=== PATIENT | female | born 1980 ===

== ENCOUNTER 2024-06-30 09:27 | Emergency (ER) | payer OTHER ==
[~2024-06-30] VITALS: Ht 154.9 cm; Wt 67.1 kg
== END 2024-06-30 11:11 | disposition home or self-care (01) ==
LOC: ER 09:27
DX: S63.502A Unspecified sprain of left wrist, initial encounter (principal); V69.88XA Occupant (driver) (passenger) of heavy transport vehicle injured in other specified transport accidents, initial encounter
CPT/HCPCS: 29125; 73110; 73130; 73140; 99283-25

== ENCOUNTER 2024-12-31 19:16 | Inpatient (IN) | payer OTHER | END 2025-01-03 13:30 | disposition home or self-care (01) | DRG 871 | LOC: ER 19:16 → ERHOLD 23:03 → PCU 01-01 00:30 | PROVIDERS: ADMIT Student in an Organized Health Care Education/Training Program | DX: A41.9 Sepsis, unspecified organism (principal); J18.9 Pneumonia, unspecified organism; E87.1 Hypo-osmolality and hyponatremia; G96.198 Other disorders of meninges, not elsewhere classified; K76.0 Fatty (change of) liver, not elsewhere classified; E87.6 Hypokalemia; R79.1 Abnormal coagulation profile; F17.210 Nicotine dependence, cigarettes, uncomplicated; E86.1 Hypovolemia ==

== ENCOUNTER 2025-01-22 17:27 | Inpatient (IN) | payer OTHER ==
[~2025-01-22] VITALS: Ht 152.4 cm; Wt 60.0 kg
[~2025-01-22 17:27] MED LIST: AMOCLA875 PO; Acetaminophen650 M1 PO; GUAI600T33 PO
[2025-01-22] MEDS ORDERED: Ketorolac Tromethamine 15mg Vial IV ONE (18:15)
[2025-01-22] MEDS ORDERED: Ondansetron HCl 2 MG / ML 2ML Vial IV ONE (18:15)
[2025-01-22 19:01] LABS: BASOPHILS ABSOLUTE AUTO 0.06 K/mm3 (0.00-0.23); BASOPHILS PERCENT AUTO 0 % (0-2); EOSINOPHILS ABSOLUTE AUTO 0.41 K/mm3 (0.00-0.68); EOSINOPHILS PERCENT AUTO 3 % (0-6); Hematocrit 42.3 % (33.0-51.0); Hemoglobin 13.8 g/dL (11.5-16.0); IMMATURE GRAN ABSOLUTE AUTO 0.04 K/mm3 (0.00-0.10); IMMATURE GRAN PERCENT AUTO 0 % (0-1); LYMPHOCYTES ABSOLUTE AUTO 1.37 K/mm3 (0.84-5.20); LYMPHOCYTES PERCENT AUTO 9 % (21-46); MONOCYTES ABSOLUTE AUTO 0.91 K/mm3 (0.16-1.47); MONOCYTES PERCENT AUTO 6 % (4-13); Mean Corpuscular HGB Conc 32.6 g/dL (31.5-36.5); Mean Corpuscular Volume 105 fL (80-100); NEUTROPHILS ABSOLUTE AUTO 11.72 K/mm3 (1.96-9.15); NEUTROPHILS PERCENT AUTO 81 % (41-73); NRBC ABSOLUTE 0.00 K/mm3 (0.00-0.02); NRBC Auto 0.0 /100 WBC (0.0-0.2); Platelet Count 305 K/mm3 (150-400); RDW Coefficient Variation 15.4 % (11.7-14.2); RDW Standard Deviation 59.6 fL (35.1-46.3)
[2025-01-22 19:26] LABS: Alanine Aminotransfer (ALT/SGP 104 U/L (12-78); Albumin, Blood 3.4 g/dL (3.4-5.0); Albumin/Globulin Ratio 0.7 (0.8-1.8); Anion Gap 8 mmol/L (3-11); Aspartate Aminotrans (AST/SGOT 195 U/L (12-37); Bilirubin, Total 0.6 mg/dL (0.1-1.0); Blood Urea Nitrogen 16 mg/dL (8-24); CO2, Blood 30 mmol/L (21-32); Calcium, Blood 9.3 mg/dL (8.5-10.1); Chloride, Blood 106 mmol/L (98-108); Creatinine, Blood 0.98 mg/dL (0.40-1.00); Globulin, Blood 4.9 g/dL (2.2-4.0); Glucose, Blood 122 mg/dL (70-99); Potassium, Blood 4.5 mmol/L (3.5-5.5); Sodium, Blood 139 mmol/L (136-145); Total Protein, Blood 8.3 g/dL (6.4-8.2)
[2025-01-22] MEDS ORDERED: Morphine Sulfate 4 MG/1 ML Injection IV ONE (20:20)
[2025-01-22] MEDS ORDERED: CefTRIAXone Sodium 1,000 MG in NS 100 ML IV ONE (23:55)
[2025-01-23] MEDS ORDERED: NS 1,000 ML IV SCH (00:20)
[2025-01-23] MEDS ORDERED: FentaNYL Citrate 50 MCG/ML 2 ML Injection IV PRN (00:20)
[2025-01-23] MEDS ORDERED: FLU VACC TS2025-26(6MOS UP)/PF 45 MCG/0.5 ML SYRINGE IM SCH (00:20)
[2025-01-23] MEDS ORDERED: Ondansetron HCl 2 MG / ML 2ML Vial IV PRN (00:20)
[2025-01-23 00:40] VITALS: BP 107/77
[2025-01-23 01:55] LABS: CHOL/HDL RATIO 2.6; Cholesterol 247 mg/dL (50-200); HDL Cholesterol 96 mg/dL (>39); LDL/HDL RATIO 1.3; Low Density Lipoprotein Chol 128 mg/dL (0-110); Triglycerides 113 mg/dL (30-160); Very Low Density Lipoprot Chol 22 mg/dL (6-32)
--- NOTE | 2025-01-23 03:08 | NUR ---
NOC SUMMARY- PT DENIES PAIN OR DISCOMFORT. PT ARRIVED TO ROOM IN NO DISTRESS. PT HAD NO TELE EVENTS REPORTED. PT REMAINS NPO. PT IS INDEPEDANT IN ROOM. PT VOIDING. PT DENIES N/V. PT HAS BEEN RESTING COMFORTABLY. CALL LIGHT IN REACH.
[2025-01-23 04:46] VITALS: BP 116/80
[2025-01-23 05:33] LABS: BASOPHILS ABSOLUTE AUTO 0.07 K/mm3 (0.00-0.23); BASOPHILS PERCENT AUTO 1 % (0-2); EOSINOPHILS ABSOLUTE AUTO 0.52 K/mm3 (0.00-0.68); EOSINOPHILS PERCENT AUTO 5 % (0-6); Hematocrit 33.2 % (33.0-51.0); Hemoglobin 10.9 g/dL (11.5-16.0); IMMATURE GRAN ABSOLUTE AUTO 0.03 K/mm3 (0.00-0.10); IMMATURE GRAN PERCENT AUTO 0 % (0-1); LYMPHOCYTES ABSOLUTE AUTO 2.60 K/mm3 (0.84-5.20); LYMPHOCYTES PERCENT AUTO 26 % (21-46); MONOCYTES ABSOLUTE AUTO 1.36 K/mm3 (0.16-1.47); MONOCYTES PERCENT AUTO 14 % (4-13); Mean Corpuscular HGB Conc 32.8 g/dL (31.5-36.5); Mean Corpuscular Volume 105 fL (80-100); NEUTROPHILS ABSOLUTE AUTO 5.46 K/mm3 (1.96-9.15); NEUTROPHILS PERCENT AUTO 54 % (41-73); NRBC ABSOLUTE 0.00 K/mm3 (0.00-0.02); NRBC Auto 0.0 /100 WBC (0.0-0.2); Platelet Count 270 K/mm3 (150-400); RDW Coefficient Variation 15.4 % (11.7-14.2); RDW Standard Deviation 59.4 fL (35.1-46.3)
[2025-01-23 06:16] LABS: Alanine Aminotransfer (ALT/SGP 190.0 U/L (12-78); Albumin, Blood 2.6 g/dL (3.4-5.0); Albumin/Globulin Ratio 0.7 (0.8-1.8); Anion Gap 8.0 mmol/L (3-11); Aspartate Aminotrans (AST/SGOT 293.0 U/L (12-37); Bilirubin, Total 0.4 mg/dL (0.1-1.0); Blood Urea Nitrogen 17.0 mg/dL (8-24); CO2, Blood 27.0 mmol/L (21-32); Calcium, Blood 8.0 mg/dL (8.5-10.1); Chloride, Blood 106.0 mmol/L (98-108); Creatinine, Blood 0.63 mg/dL (0.40-1.00); Globulin, Blood 3.7 g/dL (2.2-4.0); Glucose, Blood 86.0 mg/dL (70-99); Potassium, Blood 3.7 mmol/L (3.5-5.5); Sodium, Blood 137.0 mmol/L (136-145); Total Protein, Blood 6.3 g/dL (6.4-8.2)
[2025-01-23 07:27] VITALS: BP 116/78
[2025-01-23] MEDS ORDERED: Metoclopramide HCl 5MG / ML 2ML Vial IV PRN (12:20)
[2025-01-23 13:09] LABS: Source, Urine Clean Catch
[2025-01-23 13:14] LABS: Bilirubin, Urine Neg (Neg); Color, Urine Yellow (P-Yellow); Glucose Qualitative, Urine Neg (Neg); Ketones, Urine Neg (Neg); Leukocyte Esterase, Urine 3+ (Neg); Protein, Urine 2+ (Neg); Specific Gravity, Urine 1.015 (1.003-1.022); Urobilinogen, Urine 2+ (Normal)
[2025-01-23 13:31] LABS: Red Blood Cells, Urine Not Seen /hpf (0-2)
[2025-01-23 15:15] VITALS: BP 110/84
--- NOTE | 2025-01-23 16:02 | NUR ---
SHIFT SUMMARY PATIENT IS AOX4, IND IN THE ROOM. ADMITTED WITH PANCREATITIS. IV FLUIDS AND ABX T/O SHIFT. VOIDING. AND MEDICATED FOR PAIN PER EMAR. MRI TODAY CL DIET ORDERED FOR DINNER, NPO AFTER MIDNIGHT FOR POSSIBLE SURGERY. VSS. CALL LIGHT IN REACH.
[2025-01-23 19:45] VITALS: BP 106/83
[2025-01-24 00:39] VITALS: BP 110/73
[2025-01-24] MEDS ORDERED: Morphine Sulfate 4 MG/1 ML Injection IV PRN (03:10)
[2025-01-24 04:15] VITALS: BP 111/79
--- NOTE | 2025-01-24 04:28 | NUR ---
NOC SUMMARY- PT PAIN MANAGED WELL. PT TOLERATING CLEAR LIQUIDS WELL. PT HAS BEEN RESTING QUIETLY. PT VOIDING WELL. NO NEW ISSUES. CALL LIGHT IN REACH.
[2025-01-24 05:34] LABS: BASOPHILS ABSOLUTE AUTO 0.06 K/mm3 (0.00-0.23); BASOPHILS PERCENT AUTO 1 % (0-2); EOSINOPHILS ABSOLUTE AUTO 0.81 K/mm3 (0.00-0.68); EOSINOPHILS PERCENT AUTO 9 % (0-6); Hematocrit 33.2 % (33.0-51.0); Hemoglobin 10.9 g/dL (11.5-16.0); IMMATURE GRAN ABSOLUTE AUTO 0.01 K/mm3 (0.00-0.10); IMMATURE GRAN PERCENT AUTO 0 % (0-1); LYMPHOCYTES ABSOLUTE AUTO 2.47 K/mm3 (0.84-5.20); LYMPHOCYTES PERCENT AUTO 29 % (21-46); MONOCYTES ABSOLUTE AUTO 1.15 K/mm3 (0.16-1.47); MONOCYTES PERCENT AUTO 13 % (4-13); Mean Corpuscular HGB Conc 32.8 g/dL (31.5-36.5); Mean Corpuscular Volume 105 fL (80-100); NEUTROPHILS ABSOLUTE AUTO 4.12 K/mm3 (1.96-9.15); NEUTROPHILS PERCENT AUTO 48 % (41-73); NRBC ABSOLUTE 0.00 K/mm3 (0.00-0.02); NRBC Auto 0.0 /100 WBC (0.0-0.2); Platelet Count 268 K/mm3 (150-400); RDW Coefficient Variation 15.3 % (11.7-14.2); RDW Standard Deviation 59.5 fL (35.1-46.3)
[2025-01-24 05:59] LABS: Anion Gap 7.0 mmol/L (3-11); Blood Urea Nitrogen 7.0 mg/dL (8-24); CO2, Blood 27.0 mmol/L (21-32); Calcium, Blood 8.1 mg/dL (8.5-10.1); Chloride, Blood 106.0 mmol/L (98-108); Creatinine, Blood 0.58 mg/dL (0.40-1.00); Glucose, Blood 85.0 mg/dL (70-99); Potassium, Blood 3.8 mmol/L (3.5-5.5); Sodium, Blood 136.0 mmol/L (136-145)
--- NOTE | 2025-01-24 06:49 | NUR ---
REPORT RECEIVED FROM KAPIL IRWIN RN AT 0441 FOR ASSUMPTION OF CARE. PT'S TELEMETRY INTACT NSR AT 70 BPM WHEN REPORT RECIEVED. NO EVENTS ON TELEMETRY. WILL GIVE REPORT TO ONCOMING DAY SHIFT NURSE.
[2025-01-24 07:05] VITALS: BP 115/83
[2025-01-24 15:00] VITALS: BP 115/83
--- NOTE | 2025-01-24 18:37 | NUR ---
DISCHARGE SUMMARY: [place] REQUEST SENT TO [facility]. REPORT CALLED AND GIVEN. PATIENT PROVIDED BELONGINGS. GAVE REPORT TO EMT AND SUPERVISOR PAPER MACHINE. PATIENT IN GOOD SPIRITS UPON LEAVING.
== END 2025-01-24 16:10 | disposition short-term general hospital (02) | DRG 439 ==
LOC: ER 17:27 → SURS 23:57
PROVIDERS: Student in an Organized Health Care Education/Training Program; ADMIT Internal Medicine
DX: K85.10 Biliary acute pancreatitis without necrosis or infection (principal); K80.00 Calculus of gallbladder with acute cholecystitis without obstruction; G96.198 Other disorders of meninges, not elsewhere classified; F17.210 Nicotine dependence, cigarettes, uncomplicated; G89.29 Other chronic pain; M54.9 Dorsalgia, unspecified; Z91.0110 Allergy to milk products, unspecified
CPT/HCPCS: 36415; 74183; 76705; 80048; 80053; 80061; 81001; 83690; 83880; 85025; 96374; 96375; 99284-25; A9270; A9579; J0696; J1885; J2270; J2405; J2765; J3010; J7030; J7120

== ENCOUNTER 2025-01-29 15:05 | Observation (INO) | payer OTHER ==
[~2025-01-29] VITALS: Ht 152.4 cm; Wt 58.5 kg
[2025-01-29 15:47] LABS: BASOPHILS ABSOLUTE AUTO 0.07 K/mm3 (0.00-0.23); BASOPHILS PERCENT AUTO 1 % (0-2); EOSINOPHILS ABSOLUTE AUTO 0.97 K/mm3 (0.00-0.68); EOSINOPHILS PERCENT AUTO 9 % (0-6); Hematocrit 34.9 % (33.0-51.0); Hemoglobin 11.5 g/dL (11.5-16.0); IMMATURE GRAN ABSOLUTE AUTO 0.05 K/mm3 (0.00-0.10); IMMATURE GRAN PERCENT AUTO 1 % (0-1); LYMPHOCYTES ABSOLUTE AUTO 2.79 K/mm3 (0.84-5.20); LYMPHOCYTES PERCENT AUTO 26 % (21-46); MONOCYTES ABSOLUTE AUTO 1.19 K/mm3 (0.16-1.47); MONOCYTES PERCENT AUTO 11 % (4-13); Mean Corpuscular HGB Conc 33.0 g/dL (31.5-36.5); Mean Corpuscular Volume 103 fL (80-100); NEUTROPHILS ABSOLUTE AUTO 5.72 K/mm3 (1.96-9.15); NEUTROPHILS PERCENT AUTO 53 % (41-73); NRBC ABSOLUTE 0.00 K/mm3 (0.00-0.02); NRBC Auto 0.0 /100 WBC (0.0-0.2); Platelet Count 432 K/mm3 (150-400); RDW Coefficient Variation 15.4 % (11.7-14.2); RDW Standard Deviation 57.3 fL (35.1-46.3)
[2025-01-29 16:14] LABS: Alanine Aminotransfer (ALT/SGP 126 U/L (12-78); Albumin, Blood 3.3 g/dL (3.4-5.0); Albumin/Globulin Ratio 0.8 (0.8-1.8); Anion Gap 7 mmol/L (3-11); Aspartate Aminotrans (AST/SGOT 43 U/L (12-37); Bilirubin, Total 0.6 mg/dL (0.1-1.0); Blood Urea Nitrogen 13 mg/dL (8-24); CO2, Blood 29 mmol/L (21-32); Calcium, Blood 8.7 mg/dL (8.5-10.1); Chloride, Blood 105 mmol/L (98-108); Creatinine, Blood 0.75 mg/dL (0.40-1.00); Ethanol (Alcohol), Blood, Med <3 mg/dL; Globulin, Blood 4.2 g/dL (2.2-4.0); Glucose, Blood 115 mg/dL (70-99); Potassium, Blood 3.5 mmol/L (3.5-5.5); Sodium, Blood 137 mmol/L (136-145); Total Protein, Blood 7.5 g/dL (6.4-8.2)
[2025-01-29] MEDS ORDERED: Ondansetron HCl 2 MG / ML 2ML Vial IV PRN (19:50)
[2025-01-29] MEDS ORDERED: Magnesium Hydroxide Conc 10 ML UDC PO PRN (19:50)
[2025-01-29] MEDS ORDERED: FLU VACC TS2025-26(6MOS UP)/PF 45 MCG/0.5 ML SYRINGE IM SCH (19:50)
[2025-01-29] MEDS ORDERED: NS 1,000 ML IV SCH (19:50)
[2025-01-29] MEDS ORDERED: HYDROmorphone HCl/Pf 1MG SYR IV PRN ×2 (19:55→22:05)
[2025-01-29] MEDS ORDERED: NS 1,000 ML IV ONE (20:10)
[2025-01-29 20:53] VITALS: BP 119/83
[2025-01-30] VITALS (17 sets, daily range): BP systolic 106–156; BP diastolic 66–101
[2025-01-30 04:58] LABS: BASOPHILS ABSOLUTE AUTO 0.09 K/mm3 (0.00-0.23); BASOPHILS PERCENT AUTO 1 % (0-2); EOSINOPHILS ABSOLUTE AUTO 0.96 K/mm3 (0.00-0.68); EOSINOPHILS PERCENT AUTO 11 % (0-6); Hematocrit 32.7 % (33.0-51.0); Hemoglobin 10.7 g/dL (11.5-16.0); IMMATURE GRAN ABSOLUTE AUTO 0.03 K/mm3 (0.00-0.10); IMMATURE GRAN PERCENT AUTO 0 % (0-1); LYMPHOCYTES ABSOLUTE AUTO 3.12 K/mm3 (0.84-5.20); LYMPHOCYTES PERCENT AUTO 36 % (21-46); MONOCYTES ABSOLUTE AUTO 1.11 K/mm3 (0.16-1.47); MONOCYTES PERCENT AUTO 13 % (4-13); Mean Corpuscular HGB Conc 32.7 g/dL (31.5-36.5); Mean Corpuscular Volume 105 fL (80-100); NEUTROPHILS ABSOLUTE AUTO 3.48 K/mm3 (1.96-9.15); NEUTROPHILS PERCENT AUTO 40 % (41-73); NRBC ABSOLUTE 0.00 K/mm3 (0.00-0.02); NRBC Auto 0.0 /100 WBC (0.0-0.2); Platelet Count 390 K/mm3 (150-400); RDW Coefficient Variation 15.5 % (11.7-14.2); RDW Standard Deviation 60.1 fL (35.1-46.3)
[2025-01-30 05:21] LABS: Alanine Aminotransfer (ALT/SGP 89.0 U/L (12-78); Albumin, Blood 2.6 g/dL (3.4-5.0); Albumin/Globulin Ratio 0.7 (0.8-1.8); Anion Gap 8.0 mmol/L (3-11); Aspartate Aminotrans (AST/SGOT 31.0 U/L (12-37); Bilirubin, Total 0.5 mg/dL (0.1-1.0); Blood Urea Nitrogen 10.0 mg/dL (8-24); CO2, Blood 26.0 mmol/L (21-32); Calcium, Blood 7.9 mg/dL (8.5-10.1); Chloride, Blood 107.0 mmol/L (98-108); Creatinine, Blood 0.58 mg/dL (0.40-1.00); Globulin, Blood 3.5 g/dL (2.2-4.0); Glucose, Blood 83.0 mg/dL (70-99); Potassium, Blood 3.5 mmol/L (3.5-5.5); Sodium, Blood 137.0 mmol/L (136-145); Total Protein, Blood 6.1 g/dL (6.4-8.2)
--- NOTE | 2025-01-30 05:34 | NUR ---
ASSUMED CARE AT 2030. PT ADMITTED D/T ABD PAIN POST ERCP AND [facility] REMOVAL AT AN OUT[facility]IDE [facility]OS[facility]. CONSULT TO SURGERY CALLED IN. PT IS NPO PENDING PROCEDURE. MEDICATED X1 FOR PAIN PER EMAR. PT IS PLEASANT ANDCOOPERATIVE WITH CARE. AT BEDSIDE. CALL LIGHT WITHIN REACH AND BED IN LOWEST POSITION
[2025-01-30] MEDS ORDERED: Sugammadex Sodium 200 MG/2ML SDV (100 MG/ML) ONE (08:19)
[2025-01-30] MEDS ORDERED: FentaNYL Citrate 50 MCG/ML 2 ML Injection ONE ×2 (08:19→11:26)
[2025-01-30] MEDS ORDERED: Ondansetron HCl 2 MG / ML 2ML Vial ONE (08:20)
[2025-01-30] MEDS ORDERED: Dexamethasone Sod Phos 10 MG/ML 1ML VIAL ONE (08:20)
[2025-01-30] MEDS ORDERED: Enoxaparin 40 MG/0.4 ML SYR SC SCH (09:00)
[2025-01-30] MEDS ORDERED: Bupivacaine 0.5% HCl 5 MG/ML 30MLVIAL ONE (09:06)
[2025-01-30] MEDS ORDERED: FentaNYL Citrate 50 MCG/ML 2 ML Injection IV PRN ×3 (09:20→09:25)
[2025-01-30] MEDS ORDERED: Metoclopramide HCl 5MG / ML 2ML Vial IV PRN (09:25)
[2025-01-30] MEDS ORDERED: HYDROmorphone HCl/Pf 1MG SYR IV PRN ×2 (09:25→11:25)
[2025-01-30] MEDS ORDERED: Ondansetron HCl 2 MG / ML 2ML Vial IV PRN (09:25)
[2025-01-30] MEDS ORDERED: Midazolam HCl 1MG / ML 2ML Vial IV PRN (09:25)
[2025-01-30] MEDS ORDERED: Midazolam HCl 1MG / ML 2ML Vial ONE (09:27)
[2025-01-30] MEDS ORDERED: Rocuronium Bromide 10 MG/ML 5ML Injection IV ONE (09:53)
[2025-01-30] MEDS ORDERED: Ketorolac Tromethamine 30mg Vial ONE (09:57)
[2025-01-30] MEDS ORDERED: Labetalol HCL 5 MG/ML 4ML Injection (Single Dose) ONE (10:00)
[2025-01-30] MEDS ORDERED: Metoclopramide HCl 5MG / ML 2ML Vial ONE (11:25)
[2025-01-30] MEDS ORDERED: Ketorolac Tromethamine 15mg Vial IV PRN (11:30)
--- NOTE | 2025-01-30 11:52 | NUR ---
RECEIVED REPORT FROM PACU
--- NOTE | 2025-01-30 12:07 | NUR ---
PATIENT ARRIVED TO THE UNIT VIA GURNEY. ALERT, BUT GROGGY. REPORTS 5-6/10 PAIN. SHE WAS TRANSFERRED TO HER BED, VITALS OBTAINED, WATER OFFERED. ABD SITES EXAMINATED WNL.
[2025-01-30] MEDS ORDERED: OXYC5 PO (12:47)
--- NOTE | 2025-01-30 14:46 | NUR ---
DISCHARGE NOTE: WENT OVER DISCHARGE WITH THE PATIENT. IV REMOVED. PATIENT GOT HERSELF DRESSED AND COLLECTED BELONGINGS. WAS WHEELED DOWN BY . NO SIGNS OR SYMPTOMS OF DISTRESS DURING DISCHARGE. PATIENT TOLERATING PO INTAKE, PAIN CONTROLLED, AMBULATING, AND WAS ABLE TO VOID BEFORE LEAVING. VITALS STABLE AND NO COMPLICATIONS WITH SURGICAL SITES.
== END 2025-01-30 14:45 | disposition home or self-care (01) ==
LOC: ER 15:05 → MEDS 15:06 → ERHOLD 15:06 → MEDS 20:45 → ENPENDDIS 01-30 11:55 → MEDS 01-30 14:45
PROVIDERS: Emergency Medicine; Surgery; ADMIT Family Medicine
PROC: BF53200 Other Imaging of Gallbladder and Bile Ducts using Fluorescing Agent, Indocyanine Green Dye, Intraoperative (ICD-10-PCS; principal; 2025-01-30 09:00)
PROC: 0FT44ZZ Resection of Gallbladder, Percutaneous Endoscopic Approach (ICD-10-PCS; principal; 2025-01-30 09:00)
DX: K80.10 Calculus of gallbladder with chronic cholecystitis without obstruction (principal); K85.10 Biliary acute pancreatitis without necrosis or infection; F17.210 Nicotine dependence, cigarettes, uncomplicated; Z91.0110 Allergy to milk products, unspecified
CPT/HCPCS: 36415; 80053; 80320; 83605; 83690; 85025; 99284; A9270; G0378; J1100; J1171; J1885; J2250; J2405; J2704; J2765; J3010; J7030; J7120